=== PATIENT | male | born 1950 | race Caucasian/White ===

== ENCOUNTER 2018-04-16 12:48 | Outpatient (CLI) | payer MEDICARE, BC | END 2018-04-16 12:49 | disposition critical access hospital (66) | LOC: EMS 12:48 | PROVIDERS: ATTEND Surgery | DX: S09.90XA Unspecified injury of head, initial encounter (principal); M25.512 Pain in left shoulder; V93.39XA Fall on board unspecified watercraft, initial encounter | CPT/HCPCS: A0425; A0429 ==

== ENCOUNTER 2018-04-16 13:10 | Emergency (ER) | payer MEDICARE, BC ==
--- NOTE | 2018-04-16 13:22 | ED Physician Documentation ---
PD HPI Fall - Stated complaint Stated Complaint: FALL - Chief complaint Chief Complaint: Trauma Ch/Bk - History obtained from History obtained from: Patient - History of Present Illness Mechanism of injury: Slipped Fall distance: Standing position Where injury occurred: Other (boat) Timing - onset: Today Injury(ies) location: Head, Left Uppper Extremity Quality of pain: Pain, Throbbing Associated symptoms: LOC. No: Seizures, Ear drainage, Nasal drainage, Neck pain, Weakness, Paresthesias, Dyspnea, Nausea / vomiting, Hematemesis, Abdominal distension Symptoms improve with: Rest Worsens with: Movement, Palpation Contributing factors: No: Anticoagulated Similar symptoms before: Has not had sx before Recently seen: Not recently seen - Additional information Additional information: 67-year-old male was inside of a boat today and fell backwards striking his left shoulder and his head. He had a have loss of consciousness of several minutes. The fall was not witnessed. There was no seizure activity and the patient has amnesia for the event itself. He denies any nausea now denies any dizziness or numbness. Review of Systems Constitutional: denies: Fever Eyes: denies: Decreased vision Ears: denies: Ear pain Nose: denies: Congestion Throat: denies: Sore throat Cardiac: denies: Chest pain / pressure, Palpitations Respiratory: denies: Dyspnea, Cough GI: denies: Abdominal Pain, Nausea, Vomiting : denies: Dysuria, Frequency Skin: denies: Rash, Lesions Musculoskeletal: reports: Joint pain, Joint swelling. denies: Neck pain, Back pain, Extremity pain Neurologic: reports: Head injury, LOC. 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 ) - Present Medications Home Medications: Ambulatory Orders Medication Instructions Recorded Confirmed Furosemide 40 mg PO BID PRN 04/16/18 04/16/18 Ibuprofen [Motrin] 600 mg PO Q6H PRN 04/16/18 04/16/18 Lactulose 10 gm ORAL TID 04/16/18 04/16/18 - Allergies Allergies/Adverse Reactions: Allergies Allergy/AdvReac Type Severity Reaction Status Date / Time Sulfa (Sulfonamide Allergy Anaphylaxis Verified 04/16/18 14:50 Antibiotics) PD ED PE NORMAL - Vitals Vital signs reviewed: Yes (hypertensive diastolic ) - General General: Alert and oriented X 3, No acute distress, Well developed/nourished - HEENT HEENT: PERRL, EOMI, Ears normal, Other (There is a hematoma to the left parietal/occipital scalp.) - Neck Neck: Supple, no meningeal sign, No bony TTP - Cardiac Cardiac: RRR, No murmur - Respiratory Respiratory: No respiratory distress, Clear bilaterally - Abdomen Abdomen: Soft, Non tender - Back Back: No CVA TTP, No spinal TTP - Derm Derm: Normal color, Warm and dry, No rash - Extremities Extremities: Other (There is deformity and tenderness to the left shoulder with tenderness over the scapula and the distal clavicle. ) - Neuro Neuro: Alert and oriented X 3, braid maker 2-12 intact, No motor deficit, No sensory deficit, Normal speech Eye Opening: Spontaneous Motor: Obeys Commands Verbal: Oriented GCS Score: 15 - Psych Psych: Normal mood, Other (affect is flat) Results - Vitals Vitals: Vital Signs - 24 hr 04/16/18 04/16/18 04/16/18 13:13 14:16 15:20 Temperature 36.2 C L Heart Rate 62 64 62 Respiratory 18 18 18 Rate Blood Pressure 135/90 H 118/73 123/70 O2 Saturation 97 98 98 04/16/18 04/16/18 16:06 16:44 Temperature Heart Rate 66 79 Respiratory 16 18 Rate Blood Pressure 125/76 128/84 H O2 Saturation 99 99 Oxygen O2 Source Room air - Labs Labs: Laboratory Tests 04/16/18 04/16/18 04/16/18 14:36 14:36 14:36 WBC 13.1 H RBC 4.65 L Hgb 12.5 L Hct 37.9 L MCV 81.6 MCH 26.8 L MCHC 32.9 RDW 14.0 Plt Count 103 L MPV 8.8 Neut # (Auto) 11.8 H Lymph # (Auto) 0.5 L Mercer # (Auto) 0.7 Eos # (Auto) 0.0 Baso # (Auto) 0.0 Absolute Nucleated RBC 0.00 Nucleated RBC % 0.0 PT 12.6 INR 1.1 APTT 30.8 Sodium 141 Potassium 3.6 Chloride 104 Carbon Dioxide 29 Anion Gap 8.0 BUN 19 Creatinine 1.4 H Estimated GFR (MDRD) 51 L Glucose 109 H Calcium 8.6 Total Bilirubin 0.9 AST 22 ALT 15 Alkaline Phosphatase 118 Troponin I Total Protein 6.9 Albumin 4.2 Globulin 2.7 Albumin/Globulin Ratio 1.6 Lipase 37 04/16/18 14:36 WBC RBC Hgb Hct MCV MCH MCHC RDW Plt Count MPV Neut # (Auto) Lymph # (Auto) Mercer # (Auto) Eos # (Auto) Baso # (Auto) Absolute Nucleated RBC Nucleated RBC % PT INR APTT Sodium Potassium Chloride Carbon Dioxide Anion Gap BUN Creatinine Estimated GFR (MDRD) Glucose Calcium Total Bilirubin AST ALT Alkaline Phosphatase Troponin I < 0.04 Total Protein Albumin Globulin Albumin/Globulin Ratio Lipase - Rads (name of study) left shoulder Radiology: Prelim report reviewed (Impression: Comminuted fracture of the scapula and distal clavicle), EMP read indepedently, See rad report CT head w/o Radiology: Prelim report reviewed (Impression: Multiple subdural hemorrhages and multiple areas of subarachnoid hemorrhage. No midline shift.), EMP read indepedently, See rad report PD MEDICAL DECISION MAKING - ED course Complexity details: reviewed results, re-evaluated patient, considered differential, d/w patient ED course: 67-year-old male with a prior history of interstitial nephritis and hepatorenal syndrome has had a fall today. He has subarrachnoid and subdural hemorrhage as well as a comminuted fracture of the distal clavicle and the body of the scapula on the left side. He has good recall of current events and amnesia for the event itself. He does not have repetative amnesia. Arrangements are made for transfer of the patient to [facility] [place] [facility] ED with Dr. Dutch Leary accepting. The delay in transport was related to a long arrival time for ambulance. - Sepsis Event Vital Signs: Vital Signs - 24 hr 04/16/18 04/16/18 04/16/18 13:13 14:16 15:20 Temperature 36.2 C L Heart Rate 62 64 62 Respiratory 18 18 18 Rate Blood Pressure 135/90 H 118/73 123/70 O2 Saturation 97 98 98 04/16/18 04/16/18 16:06 16:44 Temperature Heart Rate 66 79 Respiratory 16 18 Rate Blood Pressure 125/76 128/84 H O2 Saturation 99 99 Oxygen O2 Source Room air Departure - Departure Disposition: 02 Transfer Acute Care Hosp Clinical Impression: Subarachnoid hemorrhage following injury with concussion Qualifiers: Encounter type: initial encounter Loss of consciousness presence/duration: with LOC of 30 min or less Qualified Code(s): S06.6X1A - Traumatic subarachnoid hemorrhage with loss of consciousness of 30 minutes or less, initial encounter Subdural hematoma caused by concussion Qualifiers: Encounter type: initial encounter Loss of consciousness presence/duration: with LOC of 30 min or less Qualified Code(s): S06.5X1A - Traumatic subdural hemorrhage with loss of consciousness of 30 minutes or less, initial encounter Closed left clavicular fracture Qualifiers: Encounter type: initial encounter Clavicle location: lateral end Fracture alignment: displaced Qualified Code(s): S42.032A - Displaced fracture of lateral end of left clavicle, initial encounter for closed fracture Scapular fracture Qualifiers: Encounter type: initial encounter Scapula location: body Fracture type: closed Fracture alignment: displaced Laterality: left Qualified Code(s): S42.112A - Displaced fracture of body of scapula, left shoulder, initial encounter for closed fracture Discharge Date/Time: 04/16/18 16:55
--- NOTE | 2018-04-16 13:55 | XRAY Report ---
Reason: fall posterior pain Procedure Date: 04/16/2018 Accession Number: [id number] / [id number] Procedure: XR - Shoulder 3 View LT CPT Code: FULL RESULT: EXAM: LEFT SHOULDER RADIOGRAPHY EXAM DATE: 04/16/2018 01:38 PM. CLINICAL HISTORY: 4 COMPARISON: None. TECHNIQUE: 3 views. FINDINGS: Bones: Comminuted fracture of the distal clavicle extending to the acromioclavicular joint. Comminuted fracture of the scapula including minimally displaced fracture at the acromion as well as comminuted fracture of the body. Joints: There is widening of the acromioclavicular joint. No glenohumeral joint dislocation. Soft tissues: Soft tissue swelling about the left shoulder. IMPRESSION: Comminuted fracture of the scapula and distal clavicle as above. [facility]
--- NOTE | 2018-04-16 14:06 | CT Report ---
Reason: fall concussion +LOC Procedure Date: 04/16/2018 Accession Number: [id number] / [id number] Procedure: CT - Head W/O CPT Code: FULL RESULT: EXAM: CT HEAD EXAM DATE: 04/16/2018 01:42 PM. CLINICAL HISTORY: Fall concussion +LOC. COMPARISON: None. TECHNIQUE: Multiaxial CT images were obtained from the foramen magnum to the vertex. Reformats: Coronal. IV contrast: None. In accordance with CT protocol optimization, one or more of the following dose reduction techniques were utilized for this exam: automated exposure control, adjustment of mA and/or KV based on patient size, or use of iterative reconstructive technique. FINDINGS: Parenchyma: Small bilateral subdurals hematomas along the vertex, measuring up to 8 mm in thickness on the right and 5.5 mm in thickness on the left (best seen on coronal image 27, 26). Additional hemorrhage along the falx measuring up to 6.6 cm superiorly and 4.2 mm anteriorly. Extensive areas of subarachnoid hemorrhage bilaterally, with largest areas of subarachnoid hemorrhage in the left temporal lobe and in the high frontal lobes bilaterally. No definite intraparenchymal hemorrhage. No Midline shift. Basal cisterns remain open.. Extraaxial Spaces: Normal for age. Extra-axial hemorrhage as above. Ventricles: Normal in size and position. No definite intraventricular hemorrhage. Sinuses and Orbits: Imaged paranasal sinuses, orbits, and mastoids show no significant abnormality. Bones: No evidence of fracture or calvarial defect. Other: Scalp hematoma along the left parietal region. IMPRESSION: Multiple subdural hemorrhages and multiple areas of subarachnoid hemorrhage. No midline shift. CRITICAL RESULT: The findings were discussed with Dr. Davis on 04/16/2018 at 13: 57 hours RADIA The above findings were discussed with Jet Davis by Dr. Carolina De Leon at 14:05 hrs on 04/16/18.
[2018-04-16 14:42] LABS: BASOPHILS % (AUTO) 0.3 %; EOSINOPHILS % (AUTO) 0.3 %; HGB - HEMOGLOBIN 12.5 g/dL (14.0-18.0); LYMPHOCYTES # (AUTO) 0.5 10^3/uL (1.5-3.5); MEAN CORPUSCULAR HEMOGLOBIN 26.8 pg (27.0-31.0); MEAN CORPUSCULAR HGB CONC 32.9 g/dL (32.0-36.0); MEAN CORPUSCULAR VOLUME 81.6 fL (80.0-94.0); MEAN PLATELET VOLUME 8.8 fL (7.4-11.4); MONOCYTES # (AUTO) 0.7 10^3/uL (0.0-1.0); MONOCYTES % (AUTO) 5.4 %; NEUTROPHILS # (AUTO) 11.8 10^3/uL (1.5-6.6); PLT - PLATELET COUNT 103 10^3/uL (130-450); RED BLOOD COUNT 4.65 10^6/uL (4.70-6.10); WHITE BLOOD COUNT 13.1 x10^3/uL (4.8-10.8)
[2018-04-16 14:47] LABS: INR 1.1 (0.8-1.2); PT - PROTHROMBIN TIME 12.6 secs (9.9-12.6)
[2018-04-16 14:59] LABS: ALBUMIN 4.2 g/dL (3.2-5.5); ALBUMIN/GLOBULIN RATIO 1.6 (1.0-2.2); BILIRUBIN,TOTAL 0.9 mg/dL (0.2-1.0); CALCIUM 8.6 mg/dL (8.5-10.3); CREATININE 1.4 mg/dL (0.6-1.2); TOTAL PROTEIN 6.9 g/dL (6.7-8.2)
[2018-04-16] MEDS ORDERED: KETOROLAC 60 MG/2 ML VIAL IVP STA (15:15)
[2018-04-16 16:44] VITALS: BP 128/84
== END 2018-04-16 16:55 | disposition short-term general hospital (02) ==
LOC: ED 13:10
DX: S06.6X1A Traumatic subarachnoid hemorrhage with loss of consciousness of 30 minutes or less, initial encounter (principal); S06.5X1A Traumatic subdural hemorrhage with loss of consciousness of 30 minutes or less, initial encounter; S42.032A Displaced fracture of lateral end of left clavicle, initial encounter for closed fracture; S42.112A Displaced fracture of body of scapula, left shoulder, initial encounter for closed fracture; N12 Tubulo-interstitial nephritis, not specified as acute or chronic; K76.7 Hepatorenal syndrome; Z79.82 Long term (current) use of aspirin
CPT/HCPCS: 36415; 70450; 80053; 83690; 84484; 85025; 85610; 85730; 96374; 99284; 99285